=== PATIENT | female | born 1935 | race Caucasian/White ===

== ENCOUNTER → 2020-07-20 14:37 | Outpatient (ROUT) | payer MEDICARE, OTHER, SELFPAY ==
[2020-07-20 14:49] LABS: Add Manual Diff / Slide Review NO; Basophils Absolute Auto 0 /uL (0-100); Basophils Percent Auto 0.3 % (0-2); Eosinophils Absolute Auto 100 /uL (0-450); Eosinophils Percent Auto 1.8 % (2-4); Hematocrit 39.2 % (36-46); Hemoglobin 13.2 g/dL (12.0-16.0); Lymphocytes Absolute Auto 1300 /uL (1100-4500); Lymphocytes Percent Auto 28.9 % (25-40); Mean Corpuscular HGB Conc 33.6 % (30-36); Mean Corpuscular Hemoglobin 29.4 PG (26-34); Mean Corpuscular Volume 87.5 fL (80-100); Monocytes Absolute Auto 400 /uL (0-900); Monocytes Percent Auto 7.9 % (3-14); Neutrophils Absolute Auto 2700 /uL (1500-7000); Neutrophils Percent Auto 61.1 % (50-75); Platelet Count 179 X10^3/uL (150-400); Red Blood Cell Count 4.48 X10^6/uL (4.0-5.2); Red Cell Distribution Width 13.1 % (11.6-14.8); White Blood Cell Count 4.5 X10^3/uL (4.5-11.0)
[2020-07-20 15:07] LABS: Alanine Aminotransferase 22 IU/L (<35); Albumin 4.2 g/dL (3.5-5.0); Albumin Globulin Ratio 1.6 (1.0-2.8); Alkaline Phosphatase 97 U/L (38-126); Aspartate Aminotransferase 27 IU/L (14-36); BUN Creatinine Ratio 26.2 (6-22); Bilirubin Total 0.7 mg/dL (0.2-1.3); Blood Urea Nitrogen 16 mg/dL (7-17); Calcium 9.5 mg/dL (8.4-10.2); Carbon Dioxide 29 mmol/L (22-32); Chloride 102 mmol/L (98-107); Cholesterol 221 mg/dL (140-199); Estimated Glomerular Filt Rate > 60.0 mL/min (>60); Globulin 2.6 g/dL (1.7-4.1); Glucose 114 mg/dL (80-110); HDL Cholesterol 59 mg/dL (40-60); HEMOLYSIS < 15 (0-50); LDL Cholesterol Calculated 148 mg/dL (<100); Potassium 4.3 mmol/L (3.4-5.1); Sodium 138 mmol/L (137-145); Total Protein 6.8 g/dL (6.3-8.2); Triglycerides 71 mg/dL (35-150)
== END ==
PROVIDERS: Visit Provider Physician Assistant
DX: I10 Essential (primary) hypertension (principal); E78.2 Mixed hyperlipidemia
CPT/HCPCS: 80053; 80061; 85025

== ENCOUNTER 2020-09-25 14:12 | Emergency (ER) | payer MEDICARE, OTHER, SELFPAY ==
[2020-09-25 14:28] VITALS: BP 177/78; PULSE 74; RESP 12; TEMP 36.7; O2SAT 98; BMI 23.1
--- NOTE | 2020-09-25 15:08 | ED_ITS ---
HPI - Fall General Chief Complaint: Fall Stated Complaint: fell last night,head injury Time Seen by Provider: 09/25/20 14:49 Source: patient Mode of arrival: Ambulatory Limitations: no limitations History of Present Illness HPI Narrative: 85-year-old female nonsmoker with benign medical history presents with a chief complaint of an accidental fall last night off the toilet and striking her head and face on the ground. She did not lose consciousness and she denies any nausea or vomiting. She denies any other injury. She does not take any blood thinners. She has full recall of the event. She has a very larg e an impressive amount of swelling and ecchymosis around her left eye. She states that she has trouble seeing out of her left eye but when moving the swollen tissue out of the way she is able to see without any difficulty. She has no neck or back pain MD complaint: fall Onset (ago): hour(s) Fall from: chair Fall witnessed: no Place fall occurred: home Loss of consciousness: none Prolonged down time: no Symptoms prior to fall: none Context: tripped/slipped Location of injury: head and face Related Data Allergies Allergy/AdvReac Type Severity Reaction Status Date / Time No Known Drug Allergies Allergy Verified 09/25/20 14:34 Review of Systems Constitutional Constitutional: Denies chills, Denies fatigue, Denies fever(s), Denies frequent falls, Reports headache(s), Denies lethargy and Denies weakness Eyes Eyes: Denies change in vision, Denies eye discharge, Denies irritation and Denies loss of vision ENT Ears, Nose, Mouth, and Throat: Denies change in voice, Denies dizziness, Reports headache(s), Denies neck pain, Denies sore throat and Denies throat swelling Cardiovascular Cardiovascular: Denies chest pain, Denies irregular heart rhythm, Denies lightheadedness, Denies palpitations, Denies dyspnea, Denies dyspnea on exertion and Denies orthopnea Respiratory Respiratory: Denies cough, Denies dyspnea, Denies dyspnea on exertion and Denies wheezing Gastrointestinal Gastrointestinal: Denies abdominal pain, Denies change in bowel habits, Denies diarrhea, Denies nausea and Denies vomiting Musculoskeletal Musculoskeletal: Denies neck pain and Denies numbness Integumentary/Breasts Skin/Breast: Denies pruritus, Denies erythema, Denies rash and Denies wounds Neurologic Neurologic: Denies behavioral changes, Denies confusion, Denies dizziness, Denies frequent falls, Reports headache(s), Denies loss of vision, Denies numbness and Denies weakness Psychiatric Psychiatric: Denies anxiety, Denies behavioral changes, Denies confusion, Denies depression, Denies homicidal ideation and Denies suicidal ideation Endocrine Endocrine: Denies fatigue, Denies flushing and Denies palpitations Hematologic/Lymphatic Hematologic/Lymphatic: Denies easy bruising Allergic/Immunologic Allergic/Immunologic: Denies urticaria, Denies throat swelling and Denies wheezing Patient History Social History Smoking Status: Never smoker Smoking Status: Never smoker Substance Use Type: does not use Exam Narrative Exam Narrative: GENERAL: [85] year old patient appears stated age. Well- nourished, well-developed patient, in mild distress. GCS 15 HEAD: Large amount of dark purple ecchymosis and swelling on left forehead and around left eye, no evidence of depressed skull fracture, no bleeding EYES: Pupils equal round and reactive. No hyphema. No vision change when swollen lid removed from field of view Extraocular motions intact. No scleral icterus. No injection or drainage. ENT: Nose without bleeding, purulent drainage. Throat without erythema, tonsillar hypertrophy or exudate. Airway patent. NECK: Trachea midline. Non tender CARDIOVASCULAR: Regular rate and rhythm without murmurs, gallops, or rubs. RESPIRATORY: Clear to auscultation. Breath sounds equal bilaterally. No wheezes, rales, or rhonchi. GASTROINTESTINAL: Abdomen soft, non-tender, nondistended. EXTREMITIES: No edema or joint tenderness. BACK: Nontender without deformity or crepitance. No flank tenderness. NEURO: AOx3. SKIN: No rash or erythema of visible areas Initial Vital Signs Initial Vital Signs: Vital Signs Temperature 98.0 F 09/25/20 14:28 Pulse Rate 74 09/25/20 14:28 Respiratory Rate 12 09/25/20 14:28 Blood Pressure 177/78 H 09/25/20 14:28 Pulse Oximetry 98 09/25/20 14:28 Course Vital Signs Vital signs: Vital Signs - 8 hr 09/25/20 14:28 Temperature 98.0 F Pulse Rate 74 Respiratory Rate 12 Blood Pressure 177/78 H Pulse Oximetry 98 MDM - Fall Imaging Data CT scan - head: Radiologist's Impression: No bleed or fracture CT Orbit: Radiologist's Impression: No fracture or retrobulbar hematoma Discharge Plan Departure Patient Disposition: Home Clinical Impression: Contusion of face Qualifiers: Encounter type: initial encounter Qualified Code(s): S00.83XA - Contusion of other part of head, initial encounter Instructions: How to Prevent Falls Activity Restrictions/Additional Instructions: *You have been diagnosed with [fall with facial contusion, no evidence of bleeding in your brain or broken bone in her face.] *What to do: *Take medications as directed *Follow up with your primary care provider in 2-3 days, call for an appointment. Let them know you were seen in the Emergency Department and that we ask that you be seen in follow up *Return to ER if you should have any new, worsening or concerning symptoms Referrals: Jasmyne Bardales PA-C [Primary Care Provider] -
--- NOTE | 2020-09-25 15:57 | PC.NURSE ---
patient loaded with [facility] for transport to [facility] for CT. WIll return
--- NOTE | 2020-09-25 17:22 | PC.NURSE ---
upon arrival to ED, pt is a/o x 4, clear speech, conversant and in no acute distress. Moving all extremities equally well.
[2020-09-25 18:19] VITALS: BP 174/79; PULSE 83; RESP 22; O2SAT 97
[2020-09-25] MEDS: ACETAMINOPHEN 325 MG TABLET 650 MG PO (18:23)
== END 2020-09-25 18:26 | disposition home or self-care (01) ==
PROVIDERS: Emergency Provider Emergency Medicine; PCP Physician Assistant
DX: S00.83XA Contusion of other part of head, initial encounter (principal); R51.9 Headache, unspecified; W18.09XA Striking against other object with subsequent fall, initial encounter
CPT/HCPCS: 99281

== ENCOUNTER → 2020-10-16 14:21 | Outpatient (CLI) | payer MEDICARE, OTHER, SELFPAY ==
--- NOTE | 2020-10-16 14:23 | DI.US.S_ITS ---
PROCEDURE: US PELVIC COMPLETE INDICATIONS: PMB; PAIN TECHNIQUE: Real-time scanning was performed of the pelvic organs, with image documentation. Additional endovaginal scanning was necessary due to incomplete visualization of the adnexal and endometrial structures by transabdominal scanning. COMPARISON: None. FINDINGS: Uterus: Prior hysterectomy. Ovaries: Surgically absent. No adnexal masses seen. Other: No pathologic free abdominal or pelvic fluid. IMPRESSION: Limited examination demonstrating no pelvic abnormalities. Dictated by: Tomy WALSH Interpreted: Jonah Bryant MD on 10/16/2020 at 15:02 Approved by: Jonah Bryant M.D. on 10/16/2020 at 16:16
== END ==
PROVIDERS: PCP Physician Assistant; Referring Provider Obstetrics & Gynecology; Visit Provider Obstetrics & Gynecology
DX: N95.0 Postmenopausal bleeding (principal); N84.2 Polyp of vagina; Z90.710 Acquired absence of both cervix and uterus; Z90.722 Acquired absence of ovaries, bilateral
CPT/HCPCS: 76830; 76856